=== PATIENT | female | born 1965 | race Caucasian/White ===

== ENCOUNTER 2018-03-17 10:13 | Emergency (ER) | payer OTHER ==
[~2018-03-17] VITALS: Ht 154.9 cm; Wt 54.4 kg
--- NOTE | 2018-03-17 10:28 | NUR ---
pt ambulated to er bed 07
--- NOTE | 2018-03-17 10:28 | NUR ---
Daisy burroughs in [facility] - 03/17/18 at 1029 by [email or web address] PT AMB TO BED7
[2018-03-17 10:29] VITALS: BP 136/84
--- NOTE | 2018-03-17 10:30 | NUR ---
52/F BIB DAUGHTER C/O RUQ PAIN & NAUSEA X 1 MO. REFER FROM PCP FOR SUSPECT CHOLECYSTITIS. PT STATES N&D; SKIN IS PINK/WARM/DRY; AAOX4 WITH EVEN AND STEADY GAIT; LUNGS CLEAR BL. PT DENIES ANY FEVER, CP, SOB, OR COUGH AT THIS TIME; PATIENT STATES PAIN OF 8/10 AT THIS TIME. PATIENT POSITIONED FOR COMFORT; HOB ELEVATED; BEDRAILS UP X2; BED DOWN. ER MD MADE AWARE OF PT STATUS.
[2018-03-17] MEDS ORDERED: NACL 0.9% 500 ML IV ONE (10:37)
[2018-03-17] MEDS ORDERED: KETOROLAC 30 MG/ML VIAL IVP ONE (10:40)
[2018-03-17] MEDS ORDERED: ONDANSETRON 4 MG/2 ML VIAL IVP ONE (10:40)
--- NOTE | 2018-03-17 10:49 | NUR ---
US AT BEDSIDE
--- NOTE | 2018-03-17 10:49 | NUR ---
LAB AT BEDSIDE
[2018-03-17 11:01] LABS: BASOPHILS % (AUTO) 0.4 % (0.0-2.0); EOSINOPHILS # (AUTO) 0.1 K/uL (0-0.4); EOSINOPHILS % (AUTO) 0.6 % (0.0-4.0); HEMATOCRIT 41.8 % (36-48); HEMOGLOBIN 14.4 g/dL (12.0-16.0); LYMPHOCYTES # (AUTO) 2.1 K/uL (2.5-16.5); MEAN CORPUSCULAR HEMOGLOBIN 32 pg (27-31); MEAN CORPUSCULAR HGB CONC 34 g/dL (33-37); MEAN CORPUSCULAR VOLUME 92.7 fL (80-94); MONOCYTES # (AUTO) 0.4 K/uL (0.8-1.0); MONOCYTES % (AUTO) 4.6 % (1.7-9.3); NEUTROPHILS # (AUTO) 6.8 K/uL (1.8-7.7); NEUTROPHILS % (AUTO) 72.4 % (42.2-75.2); PLATELET COUNT (AUTO) 232 K/uL (140-450); RED BLOOD CELL COUNT(AUTO) 4.51 MIL/uL (4.20-5.40); RED CELL DISTRIBUTION WIDTH 12.7 % (11.6-13.7); WHITE BLOOD COUNT (AUTO) 9.4 K/uL (4.8-10.8)
[2018-03-17 11:08] LABS: ANION GAP 14.1 (8-16); CARBON DIOXIDE 26.3 mmol/L (21-32); POTASSIUM 3.4 mmol/L (3.5-5.1)
[2018-03-17 11:14] LABS: ALBUMIN 4.4 g/dL (3.4-5.0); TOTAL BILIRUBIN 0.5 mg/dL (0.0-1.0)
[2018-03-17] MEDS ORDERED: NACL 0.9% 1,000 ML IV SCH (12:36)
[2018-03-17] MEDS ORDERED: HYDROcodone/APAP 5/325 MG 1 TAB TAB PO PRN ×2 (12:40)
[2018-03-17] MEDS ORDERED: ACETAMINOPHEN 325 MG TAB PO PRN (12:40)
[2018-03-17] MEDS ORDERED: ONDANSETRON 4 MG/2 ML VIAL IVP PRN ×2 (12:40→15:00)
[2018-03-17 13:00] VITALS: BP 113/60
--- NOTE | 2018-03-17 13:00 | NUR ---
Patient does not wish to proceed with medical care recommended by DR TIDWELL. Patient given information related to possible complications, up to and including , which could occur as a result of leaving hospital at this time. Patient verbalizes understanding of risks involved leaving against medical advice. Patient has signed AMA form. PT'S DAUGHTER STATED " WE WILL GO BACK TO PCP NOW".
== END 2018-03-17 13:00 | disposition left against medical advice (07) ==
LOC: MED 10:13
DX: R10.11 Right upper quadrant pain (principal); R11.2 Nausea with vomiting, unspecified
CPT/HCPCS: 36415; 76705; 80053; 83690; 85025; 87040; 96361; 96374; 96375; 99285; J1885; J2405; J7030; Q0092

== ENCOUNTER 2023-04-24 09:11 | Inpatient (IN) | payer OTHER ==
[~2023-04-24] VITALS: Ht 160 cm; Wt 72.6 kg
[2023-04-24 09:19] VITALS: BP 150/87; PULSE 71; RESP 16; TEMP 98.1; O2SAT 100
--- NOTE | 2023-04-24 09:42 | NUR ---
PT PUT IN BED 12
[2023-04-24 10:16] LABS: BASOPHILS % (AUTO) 0.7 % (0.0-2.0); EOSINOPHILS # (AUTO) 0.1 K/uL (0-0.4); EOSINOPHILS % (AUTO) 2.1 % (0.0-4.0); HEMATOCRIT 40.1 % (36-48); HEMOGLOBIN 13.8 g/dL (12.0-16.0); LYMPHOCYTES # (AUTO) 2.2 K/uL (2.5-16.5); LYMPHOCYTES % (AUTO) 30.8 % (20.5-51.1); MEAN CORPUSCULAR HEMOGLOBIN 31 pg (27-31); MEAN CORPUSCULAR HGB CONC 34 g/dL (33-37); MEAN CORPUSCULAR VOLUME 90.8 fL (80-94); MONOCYTES # (AUTO) 0.5 K/uL (0.8-1.0); MONOCYTES % (AUTO) 6.8 % (1.7-9.3); NEUTROPHILS # (AUTO) 4.2 K/uL (1.8-7.7); NEUTROPHILS % (AUTO) 59.6 % (42.2-75.2); PLATELET COUNT (AUTO) 249 K/uL (140-450); RED BLOOD CELL COUNT(AUTO) 4.42 MIL/uL (4.20-5.40); RED CELL DISTRIBUTION WIDTH 15.5 % (11.6-13.7)
[2023-04-24 10:28] LABS: APPEARANCE,URINE CLEAR (CLEAR); BILIRUBIN,URINE NEGATIVE (NEGATIVE); BLOOD, URINE 1+ (NEGATIVE); COLOR,URINE YELLOW (YELLOW); LEUKOCYTE ESTERASE ,URINE NEGATIVE (NEGATIVE); NITRITE, URINE NEGATIVE (NEGATIVE); PH,URINE 5.5 (5.0-9.0); UGLUCOSE NEGATIVE (NEGATIVE)
[2023-04-24 10:30] LABS: ALBUMIN 3.9 g/dL (3.4-5.0); ANION GAP 14.8 (8-16); CARBON DIOXIDE 27.1 mmol/L (21-32); CREATININE 0.8 mg/dL (0.6-1.3); POTASSIUM 4.9 mmol/L (3.5-5.1); TOTAL BILIRUBIN 0.3 mg/dL (0.0-1.0)
[2023-04-24] MEDS ORDERED: ONDANSETRON 4 MG/2 ML VIAL IVP ONE (10:45)
[2023-04-24] MEDS ORDERED: KETOROLAC 30 MG/ML VIAL IVP ONE (10:45)
--- NOTE | 2023-04-24 13:10 | NUR ---
2ND PAGE FOR DR ASKEW FOR ADMISSION
[2023-04-24] MEDS ORDERED: MORPHINE SULFATE 2 MG/ML SYR IVP PRN (13:25)
[2023-04-24] MEDS ORDERED: MAGNESIUM OXIDE 400 MG TAB PO PRN (13:25)
[2023-04-24] MEDS ORDERED: POTASSIUM CHLORIDE 10 MEQ TABER PO PRN (13:25)
[2023-04-24] MEDS ORDERED: KCL 20 MEQ IN 100 mL PREMIX 200 ML IV PRN (13:25)
[2023-04-24] MEDS ORDERED: ACETAMINOPHEN 325 MG TAB PO PRN (13:25)
[2023-04-24] MEDS ORDERED: MAG SULF 2000 MG/WATER PREMIX 50 ML IV PRN (13:25)
[2023-04-24] MEDS ORDERED: HYDROcodone/APAP 5/325 MG 1 TAB TAB PO PRN (13:25)
[2023-04-24] MEDS ORDERED: ONDANSETRON 4 MG/2 ML VIAL IVP PRN ×2 (13:25→19:15)
--- NOTE | 2023-04-24 13:47 | NUR ---
ATTEMPTED TO CALL REPORT, NO ANSWER
--- NOTE | 2023-04-24 13:53 | NUR ---
Patient will be admitted to care of DR. ASKEW. Admited to . Will go to room. Belongings list completed. Report to .
--- NOTE | 2023-04-24 14:10 | NUR ---
RECEIVED PATIENT FROM ED. AWAKE, AMBULATORY. PATIENT'S VITALS CHECKED, PATIENT STABLE. FAMILY AT BEDSIDE
--- NOTE | 2023-04-24 14:26 | NUR ---
PATIENT HAS BEEN SCREENED AND CATEGORIZED LOW NUTRITION RISK. PATIENT WILL BE SEEN WITHIN 7 DAYS OF ADMISSION. 05/01/[address]
[2023-04-24 15:00] VITALS: PULSE 55; RESP 19; O2SAT 98
[2023-04-24 16:00] VITALS: BP 136/90; PULSE 55; PULSE 63; RESP 18; RESP 19; TEMP 97.3; O2SAT 98
[2023-04-24] MEDS ORDERED: fentaNYL citrate 0.05 MG/ML VIAL ONE ×2 (17:13→18:05)
[2023-04-24] MEDS ORDERED: SUCCINYLCHOLINE CHLORIDE 200 MG/10 ML VIAL IVP ONE ×2 (17:14→18:05)
[2023-04-24] MEDS ORDERED: PROPOFOL 200 MG/20 ML VIAL IV ONE ×2 (17:14→18:05)
[2023-04-24] MEDS ORDERED: SEVOFLURANE 250 ML BTL INH ONE (18:05)
[2023-04-24] MEDS ORDERED: ONDANSETRON 4 MG/2 ML VIAL ONE ×2 (18:05→18:18)
[2023-04-24] MEDS ORDERED: MEPERIDINE 25 MG/ML SYR ONE ×2 (18:05→19:00)
[2023-04-24] MEDS ORDERED: DEXAMETHASONE 4 MG/ML VIAL ONE ×2 (18:05→18:18)
[2023-04-24] MEDS ORDERED: cefTRIAXone 1,000 MG VIAL ONE (18:05)
[2023-04-24] MEDS ORDERED: SUGAMMADEX SODIUM 200 MG/2 ML VIAL IV ONE ×2 (18:05→18:56)
[2023-04-24] MEDS ORDERED: hydrALAZINE 20 MG/ML VIAL ONE ×2 (18:05→18:30)
[2023-04-24] MEDS ORDERED: ROCURONIUM 50 MG/5 ML VIAL IV ONE ×2 (18:05→18:15)
[2023-04-24] MEDS ORDERED: BUPIVACAINE-MPF 0.25% 30 ML VIAL INJ ONE (18:10)
[2023-04-24] MEDS ORDERED: LIDOCAINE/EPI MPF 1%1:200000 30 ML VIAL INJ ONE (18:10)
[2023-04-24] MEDS ORDERED: diphenhydrAMINE 50 MG/ML VIAL IVP PRN (19:15)
[2023-04-24] MEDS: HYDROmorphone 1 MG/ML AMP IVP PRN ×3 (19:15→19:35)
[2023-04-24] MEDS ORDERED: MEPERIDINE 25 MG/ML SYR IVP PRN (19:15)
--- NOTE | 2023-04-24 19:15 | NUR ---
RECEIVED ENDORSEMENT FROM KASEY RN FOR CONTINUITY OF CARE. PATIENT IS CURRENTLY OUT OF THE UNIT FOR A PROCEDURE. FAMILY MEMBERS AT BEDSIDE.
[2023-04-24] MEDS ORDERED: HYDROmorphone PFS 2 MG/ML SYR ONE (19:21)
--- NOTE | 2023-04-24 19:50 | NUR ---
PATIENT RETURNED TO UNIT WITH OR NURSES. PATIENT IS AWAKE AND STABLE. A&OX4 MONGOLIAN SPEAKING ONLY. OFFERED VOYCE BUT PATIENT PREFERS FAMILY MEMBER TO TRANSLATE. FAMILY MEMBER PRESENT. VERBALLY RESPONSIVE AND ABLE TO COMMUNICATE NEEDS. REPORTS 10/10 ABD PAIN. WILL MEDICATE PER PRN ORDER. RESPIRATIONS EVEN AND UNLABORED WITH NO APPARENT S/SX OF ACUTE DISTRESS. IV SITE TO THE RAC 20G PATENT/INTACT SL. PER PATIENT, NOT ABLE TO TOLERATE AMBULATION AT THIS TIME. PLAN OF CARE AND WHITE COMMUNICATION BOARD UPDATED. ALL SAFETY MEASURES IN PLACE. CALL LIGHT WITHIN REACH. BED IN LOW/LOCKED POSITION. ENCOURAGED TO CALL FOR ANY NEEDS/ASSISTANCE. WILL CONTINUE TO MONITOR.
[2023-04-24 20:00] VITALS: BP 123/86; PULSE 78; RESP 16; TEMP 96.6; O2SAT 98
--- NOTE | 2023-04-24 20:05 | NUR ---
ADMINISTERED PAIN PRN PER MD ORDER. TOLERATED WELL. NADR. VSS. RESPIRATIONS EVEN AND UNLABORED WITH NO APPARENT S/SX ACUTE DISTRESS. ALL SAFETY MEASURES IN PLACE. CALL LIGHT WITHIN REACH. BED IN LOW/LOCKED POSITION. WILL CONTINUE TO MONITOR.
[2023-04-24] MEDS: LACTATED RINGERS 1,000 ML IV SCH (21:00)
--- NOTE | 2023-04-25 02:10 | NUR ---
ASSISTED PATIENT TO BR. TOLERATED WELL. STEADY GAIT. PATIENT REPORTS TOLERABLE PAIN LEVEL. RESPIRATIONS EVEN AND UNLABORED WITH NO APPARENT S/SX OF ACUTE DISTRESS. WHITE COMMUNICATION BOARD UPDATED. ALL SAFETY MEASURES IN PLACE. CALL LIGHT WITHIN REACH. BED IN LOW/LOCKED POSITION. WILL CONTINUE TO MONITOR.
[2023-04-25] MEDS: LACTATED RINGERS 1,000 ML IV SCH (03:56)
[2023-04-25 04:00] VITALS: BP 125/79; PULSE 78; RESP 18; TEMP 98.5; O2SAT 98
--- NOTE | 2023-04-25 05:45 | NUR ---
PER BRINELL TESTER, PATIENT REFUSED BLOOD DRAW. EDUCATED PATIENT THAT BLOOD DRAW IS ROUTINE PER MD ORDER. PATIENT VERBALIZED UNDERSTANDING. WILL CONTINUE TO MONITOR.
--- NOTE | 2023-04-25 06:35 | NUR ---
SPOKE WITH DR. CALLES AND ORDERED LOW FAT DIET FOR THE PATIENT. DR. CALLES ORDERED TO DISCHARGE THE PATIENT PER PATIENT REQUEST. DR. CALLES MADE AWARE OF PATIENT REFUSAL TO DRAW BLOOD THIS MORNING.
--- NOTE | 2023-04-25 07:09 | NUR ---
ENDORSED BEDSIDE REPORT TO OMAYRA ALLAN FOR CONTINUITY OF CARE. PATIENT IS STABLE.
[2023-04-25 08:00] VITALS: PULSE 64; RESP 19; O2SAT 98
--- NOTE | 2023-04-25 10:21 | NUR ---
COMPLAINS OF ABDOMINAL PAIN S/P LAP VANDANA. NORCO PO GIVEN AT THIS TIME. WILL CONTINUE TO MONITOR.
[2023-04-25] MEDS ORDERED: ACET-9525 PO (10:55)
--- NOTE | 2023-04-25 11:10 | NUR ---
DISCHARGE INSTRUCTIONS PROVIDED TO PATIENT. ANSWERED ALL QUESTIONS. FAMILY MEMBERS AT BEDSIDE READY TO TAKE PATIENT HOME. IV SITE DISCONTINUED WITH MINIMAL BLOOD AND LUMEN COMPLETELY INTACT. ESCORTED PATIENT DOWN TO LOBBY VIA STEADY AMBULATION, REFUSED WHEELCHAIR. PATIENT DISCHARGED AT THIS TIME IN STABLE CONDITION IN PRIVATE VEHICLE.
== END 2023-04-25 11:10 | disposition home or self-care (01) | DRG 263 ==
LOC: MED 09:11 → MTU 13:26
PROVIDERS: ADMIT Internal Medicine; ATTEND Internal Medicine
PROC: 0FT44ZZ Resection of Gallbladder, Percutaneous Endoscopic Approach (ICD-10-PCS; principal; 2023-04-24 16:45)
DX: K80.10 Calculus of gallbladder with chronic cholecystitis without obstruction (principal); K76.0 Fatty (change of) liver, not elsewhere classified
CPT/HCPCS: 36415; 71045; 76705; 80053; 81001; 83690; 85025; 87081; 93005; J0330; J0360; J0696; J1100; J1170; J1644; J1885; J2001; J2175; J2270; J2405; J2704; J3010; J3490; J7060; Q0092